=== PATIENT | female | born 1955 | race Caucasian/White ===

== ENCOUNTER 2022-01-11 09:54 | Day surgery (SDC) | payer MEDICARE, OTHER ==
[2022-01-10 10:43] VITALS: BMI 25.7
[2022-01-11 10:33] LABS: Hemoglobin 11.3 g/dL (12.0-16.0)
[2022-01-11] MEDS ORDERED: AFRIN NASAL MIST 15 ML BOT ONE ×2 (10:42→11:37)
[2022-01-11 10:54] LABS: Anion Gap 13 mmol/L (10-20); BUN (Urea Nitrogen) 32 mg/dL (9.8-20.1); Calc. Creatinine Clearance 48 mL/min (70-130); Calcium 9.7 mg/dL (7.8-10.44); Carbon Dioxide 20 mmol/L (23-31); Chloride 108 mmol/L (98-107); Glucose 113 mg/dL (80-115); Sodium 137 mmol/L (136-145)
[2022-01-11] MEDS ORDERED: Lidocaine 1% w/Epinephrine 1:100K 20 ML VIAL ONE (11:37)
[2022-01-11] MEDS ORDERED: Bacitracin Zinc Ointment 30 gm TUBE ONE (11:37)
[2022-01-11] MEDS ORDERED: Ketamine 50 MG/ML (10ML VIAL) ONE (11:44)
[2022-01-11] MEDS ORDERED: fentaNYL Citrate/PF 100 MCG/2 ML SYRINGE ONE (11:44)
[2022-01-11] MEDS ORDERED: Midazolam HCl 2 mg/2 ml Vial ONE (12:00)
[2022-01-11] MEDS ORDERED: Albuterol Sulfate 1.25 MG/3 ML NEB ONE (12:58)
[2022-01-11] MEDS ORDERED: Sodium Chloride For Inhalation 0.9% 3 ML NEB ONE (13:02)
[2022-01-11] MEDS ORDERED: Racepinephrine 2.25% 0.5 ML NEB ONE (13:02)
[2022-01-11] MEDS ORDERED: Fentanyl 100 MCG/2 ML VIAL ONE ×2 (13:05→13:17)
[2022-01-11] MEDS ORDERED: Hydrocodone-Acetamin 15 ML UDCUP ONE (14:47)
== END 2022-01-11 15:58 | disposition home or self-care (01) ==
LOC: SDC 09:54
PROVIDERS: ATTEND Otolaryngology Plastic Surgery within the Head & Neck
PROC: 0CTPXZZ Resection of Tonsils, External Approach (ICD-10-PCS; principal; 2022-01-11)
PROC: 0CTQXZZ Resection of Adenoids, External Approach (ICD-10-PCS; 2022-01-11)
PROC: 09SM0ZZ Reposition Nasal Septum, Open Approach (ICD-10-PCS; 2022-01-11)
PROC: 095L7ZZ Destruction of Nasal Turbinate, Via Natural or Artificial Opening (ICD-10-PCS; 2022-01-11)
DX: J34.2 Deviated nasal septum (principal); J34.3 Hypertrophy of nasal turbinates; J35.03 Chronic tonsillitis and adenoiditis; G47.33 Obstructive sleep apnea (adult) (pediatric); I10 Essential (primary) hypertension; E78.5 Hyperlipidemia, unspecified; J45.909 Unspecified asthma, uncomplicated; E11.9 Type 2 diabetes mellitus without complications; Z87.891 Personal history of nicotine dependence; Z79.4 Long term (current) use of insulin; Z79.82 Long term (current) use of aspirin; Z79.899 Other long term (current) drug therapy; Z91.040 Latex allergy status; Z91.048 Other nonmedicinal substance allergy status
CPT/HCPCS: 36415; 80048; 85014; 85018; 88302; 88304; 93005; 93010; J2250; J3010